=== PATIENT | female | born 1985 | race Caucasian/White ===

== ENCOUNTER → 2022-09-11 | Outpatient (CLI) | payer MEDICAID, SELFPAY ==
[2022-09-11 12:25] LABS: Absolute Lymphocyte Count 1.84 X10^3/uL (0.83-4.51); Absolute Neutrophil Count 7.2 X10^3/uL (2.0-7.7); Basophil# 0.02 X10^3/uL; Basophil% 0.2 % (0-1); Eosinophil# 0.05 X10^3/uL; Eosinophils% 0.5 % (0-5); Hematocrit 41.1 % (37-47); Hemoglobin 13.6 g/dL (12.0-15.0); Lymphocyte # 1.84 X10^3/ul (0.83-4.51); Lymphocyte % 19.3 % (19-41); Mean Corp Hgb Conc 33.1 g/dL (32-36); Mean Corpuscular Hgb 30.4 pg (27.0-32.0); Mean Corpuscular Volume 91.9 fL (81-99); Mean Platelet Vol. 11.9 fl (6.2-12.0); Monocyte% 4.2 % (0-10); NRBC Flagged by Analyzer 0 % (0-5); Neutrophil # 7.19 X10^3/uL (2.7-7.7); Neutrophil % 75.3 % (47-70); Platelet Count 200 K/mm3 (150-450); RBC Distribution Width CV 12.4 % (11.6-14.6); RBC Distribution Width SD 41.7 fl (35.1-43.9); Red Blood Count 4.47 M/mm3 (4.2-5.4); White Blood Count 9.6 K/mm3 (4.4-11.0)
[2022-09-11 14:07] LABS: HIV - WCH Non-Reactive (Nonreactive); Hepatitis B Surface Antigen Non-Reactive (Nonreactive); Hepatitis C Antibody Non-Reactive (Nonreactive); Rubella IgG Reactive (Nonreactive); Syphilis Antibodies Non-reactive
[2022-09-13 09:15] LABS: V-Zoster IgG (Immunity) 952 index (Immune >165)
[2022-09-15 04:07] LABS: Chlamydia By Nucleic Acid AMP Negative (Negative)
[2022-09-15 17:52] LABS: Gonococcus By Nucleic Acid AMP Negative (Negative)
[2022-09-22 18:46] LABS: HPV APTIMA, High Risk Negative (Negative)
== END | disposition home or self-care (01) ==
PROVIDERS: Visit Provider Obstetrics & Gynecology
DX: Z34.81 Encounter for supervision of other normal pregnancy, first trimester (principal)
CPT/HCPCS: 36415; 85025; 86703; 86762; 86780; 86787; 86803; 87086; 87088; 87340; 87491; 87591; 87624; 88175; G0145

== ENCOUNTER 2022-10-09 09:29 | Outpatient (CLI) | payer MEDICAID, SELFPAY ==
[2022-10-09 10:10] LABS: Absolute Neutrophil Count 6.4 X10^3/uL (2.0-7.7); Basophil# 0.03 X10^3/uL; Basophil% 0.3 % (0-1); Eosinophil# 0.08 X10^3/uL; Eosinophils% 0.9 % (0-5); Hematocrit 38.6 % (37-47); Hemoglobin 12.8 g/dL (12.0-15.0); Lymphocyte % 22.9 % (19-41); Mean Corp Hgb Conc 33.2 g/dL (32-36); Mean Corpuscular Hgb 30.6 pg (27.0-32.0); Mean Corpuscular Volume 92.3 fL (81-99); Mean Platelet Vol. 11.6 fl (6.2-12.0); Monocyte# 0.47 X10^3/uL; Monocyte% 5.1 % (0-10); NRBC Flagged by Analyzer 0 % (0-5); Neutrophil # 6.43 X10^3/uL (2.7-7.7); Neutrophil % 70.1 % (47-70); Platelet Count 185 K/mm3 (150-450); RBC Distribution Width CV 12.4 % (11.6-14.6); RBC Distribution Width SD 42.3 fl (35.1-43.9); Red Blood Count 4.18 M/mm3 (4.2-5.4); White Blood Count 9.2 K/mm3 (4.4-11.0)
[2022-10-09 11:34] LABS: Glucose Challenge Gest 1H 50g 85 mg/dL (70-140)
== END 2022-10-09 23:59 | disposition home or self-care (01) ==
LOC: WOBLAB 09:30
PROVIDERS: Visit Provider Obstetrics & Gynecology
DX: Z34.82 Encounter for supervision of other normal pregnancy, second trimester (principal)
CPT/HCPCS: 36415; 82950; 85025

== ENCOUNTER 2022-12-03 15:22 | Outpatient (CLI) | payer MEDICAID, SELFPAY ==
[2022-12-03 17:10] LABS: Absolute Lymphocyte Count 2.08 X10^3/uL (0.83-4.51); Absolute Neutrophil Count 7.7 X10^3/uL (2.0-7.7); Basophil# 0.04 X10^3/uL; Basophil% 0.4 % (0-1); Eosinophil# 0.07 X10^3/uL; Eosinophils% 0.7 % (0-5); Hematocrit 38.5 % (37-47); Hemoglobin 12.5 g/dL (12.0-15.0); Lymphocyte # 2.08 X10^3/ul (0.83-4.51); Lymphocyte % 19.5 % (19-41); Mean Corp Hgb Conc 32.5 g/dL (32-36); Mean Corpuscular Volume 92.3 fL (81-99); Mean Platelet Vol. 11.7 fl (6.2-12.0); Monocyte# 0.66 X10^3/uL; Monocyte% 6.2 % (0-10); NRBC Flagged by Analyzer 0 % (0-5); Neutrophil # 7.68 X10^3/uL (2.7-7.7); Neutrophil % 72.1 % (47-70); Platelet Count 177 K/mm3 (150-450); RBC Distribution Width CV 12.6 % (11.6-14.6); RBC Distribution Width SD 42.7 fl (35.1-43.9); Red Blood Count 4.17 M/mm3 (4.2-5.4); White Blood Count 10.7 K/mm3 (4.4-11.0)
[2022-12-03 18:12] LABS: Syphilis Antibodies Non-reactive
== END 2022-12-03 23:59 | disposition home or self-care (01) ==
LOC: LABSPEC 15:24
PROVIDERS: Visit Provider Obstetrics & Gynecology
DX: Z34.83 Encounter for supervision of other normal pregnancy, third trimester (principal); Z36.85 Encounter for antenatal screening for Streptococcus B; Z3A.00 Weeks of gestation of pregnancy not specified
CPT/HCPCS: 36415; 85025; 86780; 87081

== ENCOUNTER 2023-01-15 22:50 | Inpatient (IN) | payer MEDICAID, SELFPAY ==
[2023-01-15] VITALS (13 sets, daily range): BP systolic 105–111; BP diastolic 69–74; PULSE 75–93; TEMP 36.8; O2SAT 97–99; BMI 34.9
[2023-01-15 23:13] LABS: ROM Internal Control Test YES-OK TO RESULT pt. (Internal QC); ROM Patient Test POSITIVE (Negative)
[2023-01-15] MEDS: Oxytocin 10 UNITS/ML Vial IM (23:23)
--- NOTE | 2023-01-15 23:39 | PCM.HP.BLA ---
History and Physical Date of Admission: 01/15/23 Chief complaint: Contractions History of present illness: 37-year-old Maria L, P6 at 41 weeks and 3 days with TRE 01/05/2023 arrives with contractions. Denies headache, vision change, chest pain, shortness of breath, nausea vomit, right upper quadrant pain. Patient states good movement. is complicated by AMA, grand multipara Obstetric history: G1: 41-week G2: SAB G3: 41-week G4: 41-week G5: 41-week G6: SAB G7: 41-week G8: 40-week G9: Current Past medical history: None Medications: vitamin Allergies: Amoxicillin Past surgical history: [place] teeth extraction Family history: Denies history of DVT or PE Social history: Denies smoking, alcohol use, drug use Review of systems: Besides above pertinent positives a full review of systems was performed and found to be negative Physical exam: Vitals: Blood pressure 108/72 pulse 90 General: Normal-appearing no acute distress HEENT: Normocephalic/atraumatic no cervical lymphadenopathy Cardiac/respiratory: No use accessory muscles, nonlabored breathing Abdomen: Soft, nontender, gravid Extremities: No peripheral edema normal peripheral pulses Psych: Normal affect and demeanor nonpressured speech Labs: ROM positive Assessment and plan: 37-year-old Maria L, P6 at 41 weeks and 3 days called by nursing with contractions and prolonged deceleration admitted to labor and delivery. Arrived for delivery with patient at 9 cm Admit labor and delivery CEFM GBS negative
--- NOTE | 2023-01-15 23:43 | EX.PCM.OBRPT ---
Vaginal Delivery Findings Description of Procedure: Normal spontaneous vaginal delivery of a viable female infant, vertex THOMAS. Head and shoulders delivered with ease. Cord clamped and cut. Baby handed off to patient. Placenta delivered intact via cord traction and fundal massage. IM Pitocin given. No lacerations noted. EBL 250 cc Apgars 8/9
[2023-01-16] VITALS (19 sets, daily range): BP systolic 91–113; BP diastolic 53–67; PULSE 65–83; RESP 16–18; TEMP 36.1–36.4; O2SAT 96–98
[2023-01-16 00:09] LABS: Absolute Neutrophil Count 9.5 X10^3/uL (2.0-7.7); Basophil# 0.03 X10^3/uL; Basophil% 0.2 % (0-1); Eosinophil# 0.06 X10^3/uL; Eosinophils% 0.4 % (0-5); Hematocrit 40.3 % (37-47); Hemoglobin 13.6 g/dL (12.0-15.0); Lymphocyte % 22.8 % (19-41); Mean Corp Hgb Conc 33.7 g/dL (32-36); Mean Corpuscular Hgb 30.4 pg (27.0-32.0); Mean Platelet Vol. 11.5 fl (6.2-12.0); Monocyte# 0.73 X10^3/uL; Monocyte% 5.4 % (0-10); NRBC Flagged by Analyzer 0 % (0-5); Neutrophil # 9.53 X10^3/uL (2.7-7.7); Neutrophil % 70.3 % (47-70); Platelet Count 175 K/mm3 (150-450); RBC Distribution Width CV 12.4 % (11.6-14.6); RBC Distribution Width SD 41.1 fl (35.1-43.9); Red Blood Count 4.48 M/mm3 (4.2-5.4); White Blood Count 13.6 K/mm3 (4.4-11.0)
[2023-01-16] MEDS: Methylergonovine 0.2 MG/ML Ampul IM (00:20)
[2023-01-16] MEDS: Ibuprofen 600 MG Tablet PO ×3 (00:45→18:18)
--- NOTE | 2023-01-16 10:13 | PCM.PN.OB ---
Subjective Subjective No overnight complaints. Bleeding well controlled Objective Data Objective Data Vital Signs: Vital Signs Temp Pulse Resp BP Pulse Ox O2 Del Method 97.6 F L 74 16 101/64 98 Room Air 01/16/23 08:40 01/16/23 08:40 01/16/23 08:40 01/16/23 08:40 01/16/23 08:40 01/16/23 08:40 Oxygen Delivery Method Room Air Weight: 191 lb 5.78 oz Body Mass Index (BMI) 34.9 Intake & Output: Intake and Output for Last 24 Hours 01/14/23 01/15/23 01/16/23 23:59 23:59 23:59 Output Total 250 / 250 Balance -250 / -250 Lab / Micro Data Result Diagrams: 01/15/23 23:43 Labs: Laboratory Results - last 24 hr 01/15/23 22:23: Vag Amniotic Fld Detect POSITIVE H 01/15/23 23:43: WBC 13.6 H, RBC 4.48, Hgb 13.6, Hct 40.3, MCV 90.0, MCH 30.4, MCHC 33.7, RDW Std Deviation 41.1, RDW Coeff of Lucian 12.4, Plt Count 175, MPV 11.5, Immature Gran % (Auto) 0.900, Neut % (Auto) 70.3 H, Lymph % (Auto) 22.8, [place] % (Auto) 5.4, Eos % (Auto) 0.4, Baso % (Auto) 0.2, Absolute Neuts (auto) 9.5 H, Absolute Lymphs (auto) 3.10, Nucleated RBC % 0 01/15/23 23:43: Blood Type O POSITIVE, Antibody Screen NEGATIVE Physical Exam Const alert, oriented x3, no apparent distress, average body habitus, healthy appearing and well nourished HEENT normocephalic and moist oral mucous membranes Eyes PERRL Neck full ROM Resp normal respiratory effort, no retractions and no use of accessory muscles GI GI Narrative: Soft, nontender, uterus firm and below umbilicus Extremity normal to inspection and full ROM Neuro moves all extremities and no focal motor deficits Psych mental status grossly normal, affect normal, speech normal and activity/motor behavior normal Assessment & Plan (1) Vaginal delivery: PLAN: day 1. Breast-feeding, to see. Called overnight by nursing with slightly increased bleeding, given order for IM Methergine. Today with minimal vaginal bleeding firm uterus all reassuring. Likely home tomorrow
[2023-01-16] MEDS: Acetaminophen 500 MG Tablet 1000 MG PO ×2 (11:52→22:29)
--- NOTE | 2023-01-16 22:30 | NURSING ---
RN notes pt states she is only allergic to codeine and not acetaminophen.
[2023-01-17] VITALS (9 sets, daily range): BP systolic 82–108; BP diastolic 52–67; PULSE 61–76; RESP 14–16; TEMP 36.1–36.8; O2SAT 95–98
--- NOTE | 2023-01-17 02:22 | NURSING ---
RN notes BP 88/53. Denies dizziness or lightheadedness. Fundus -1, firm, midline and has scant bleeding. Pt states she is tired and just woke up. Will reassess bp in 1 hour.
[2023-01-17] MEDS: Ibuprofen 600 MG Tablet PO (07:26)
--- NOTE | 2023-01-17 10:23 | DS.PCM_ITS ---
Discharge Summary Date of Admission: 01/15/23 Date of Discharge: 01/17/23 Summary: Patient arrived on 01/15/2023 in labor. Subsequently delivered vaginally on 01/15/2023. Routine recovery. Discharge home on 01/17/2023 Meaningful Use Info Meaningful Use Diagnoses (Choose all that apply): None applicable Discharge Plan Admission Admit Date/Time: 01/15/23 22:50 Primary Reason for Your Visit: Labor Attending Provider: Erwin Sequeira Primary Care Provider: Care Physician,Denisse Primary Instructions Additional Instructions / Restrictions: Regular diet. Weightbearing as tolerated. Okay to shower. No intercourse for 4 to 6 weeks. Call if fevers, chills, chest pain, shortness of breath. Follow- up 4 to 6 weeks Discharge Orders/Prescriptions Prescriptions: No Action 1 mg Tablet 1 tab PO Referrals / Follow Up: Care Physician,No Primary [Primary Care Provider] - Disposition Disposition (needs filled in before D/C Order can be placed): Home, Self Care
--- NOTE | 2023-01-17 10:24 | PCM.PN.OB ---
Subjective Subjective No overnight complaint Objective Data Objective Data Vital Signs: Vital Signs Temp Pulse Resp BP Pulse Ox O2 Del Method 97.9 F 71 16 108/54 L 97 Room Air 01/17/23 07:28 01/17/23 07:29 01/17/23 07:28 01/17/23 07:29 01/17/23 07:28 01/17/23 07:28 Oxygen Delivery Method Room Air Weight: 191 lb 5.78 oz Body Mass Index (BMI) 34.9 Intake & Output: Intake and Output for Last 24 Hours 01/15/23 01/16/23 01/17/23 23:59 23:59 23:59 Output Total 250 / 250 Balance -250 / -250 Lab / Micro Data Result Diagrams: 01/15/23 23:43 Physical Exam Const alert, oriented x3, no apparent distress, average body habitus, healthy appearing and well nourished HEENT normocephalic and moist oral mucous membranes Eyes PERRL Neck full ROM Resp normal respiratory effort, no retractions and no use of accessory muscles GI GI Narrative: Soft, nontender, uterus firm and below umbilicus Extremity normal to inspection, full ROM and no clubbing, cyanosis or edema Neuro moves all extremities and no focal motor deficits Psych mental status grossly normal, affect normal, speech normal and activity/motor behavior normal Assessment & Plan (1) Vaginal delivery: PLAN: day 2. Breast-feeding. Pain well controlled. Okay to discharge home today
[2023-01-17] MEDS: Acetaminophen 500 MG Tablet 1000 MG PO (10:50)
[2023-01-17] MEDS: Senna/Docusate Sodium 1 Tablet PO (10:52)
== END 2023-01-17 12:20 | disposition home or self-care (01) | DRG 560 ==
LOC: WPOUT 22:51 → WP 22:51
PROVIDERS: Admitting Provider Obstetrics & Gynecology; Visit Provider Obstetrics & Gynecology
DX: O48.0 Post-term pregnancy (principal); Z37.0 Single live birth; Z3A.41 41 weeks gestation of pregnancy
CPT/HCPCS: 59025; 59050; 84112; 85025; 86850; 86900; 86901; 99221; G0378

== ENCOUNTER → 2023-02-25 | Outpatient (CLI) | payer MEDICAID, SELFPAY ==
[2023-02-25 12:01] LABS: HIV - WCH Non-Reactive (Nonreactive); Syphilis Antibodies Non-reactive
[2023-02-26 06:08] LABS: HEPATITIS B SURFACE AG Negative (Negative); Hepatitis B Core Ab Total Negative (Negative)
[2023-02-26 15:39] LABS: Hep B Surface Antibodies Reactive (.)
== END | disposition home or self-care (01) ==
LOC: WOBLAB 10:46
PROVIDERS: Visit Provider Obstetrics & Gynecology
DX: Z11.3 Encounter for screening for infections with a predominantly sexual mode of transmission (principal)
CPT/HCPCS: 36415; 86703; 86704; 86705; 86706; 86707; 86780; 86803; 87340; 87350

== ENCOUNTER 2025-01-15 03:30 | Inpatient (IN) | payer MEDICAID, SELFPAY ==
[2025-01-15] VITALS (38 sets, daily range): BP systolic 99–139; BP diastolic 58–86; PULSE 70–99; RESP 16–18; TEMP 36.4–37.1; O2SAT 87–99; BMI 30.8
[2025-01-15] MEDS: Oxytocin 15 Units/NS 250ml 15 UNITS/250 ML IV.SOLN 83 UNITS IV (03:53)
[2025-01-15] MEDS: Oxytocin 10 UNITS/ML Vial IM (03:54)
[2025-01-15] MEDS: 0.9% Saline Lock 10 ML Syringe IV (03:54)
[2025-01-15 03:55] LABS: Absolute Lymphocyte Count 2.92 X10^3/uL (0.83-4.51); Absolute Neutrophil Count 8.3 X10^3/uL (2.0-7.7); Basophil# 0.04 X10^3/uL; Basophil% 0.3 % (0-1); Eosinophil# 0.15 X10^3/uL; Eosinophils% 1.2 % (0-5); Hematocrit 39.6 % (37-47); Hemoglobin 13.3 g/dL (12.0-15.0); Lymphocyte # 2.92 X10^3/ul (0.83-4.51); Lymphocyte % 23.8 % (19-41); Mean Corp Hgb Conc 33.6 g/dL (32-36); Mean Corpuscular Hgb 29.8 pg (27.0-32.0); Mean Corpuscular Volume 88.6 fL (81-99); Monocyte# 0.77 X10^3/uL; Monocyte% 6.3 % (0-10); NRBC Flagged by Analyzer 0 % (0-5); Neutrophil # 8.29 X10^3/uL (2.7-7.7); Neutrophil % 67.7 % (47-70); Platelet Count 228 K/mm3 (150-450); RBC Distribution Width CV 13.4 % (11.6-14.6); RBC Distribution Width SD 43.8 fl (35.1-43.9); Red Blood Count 4.47 M/mm3 (4.2-5.4); White Blood Count 12.3 K/mm3 (4.4-11.0)
[2025-01-15] MEDS: Methylergonovine 0.2 MG/ML Ampul IM (03:56)
--- NOTE | 2025-01-15 04:08 | OB.VAGDELI_ITS ---
Assessment & Plan (1) Vaginal delivery: (2) Precipitous delivery: (3) History of shoulder dystocia: (4) AMA (advanced maternal age) multigravida 35+: (5) History of hemorrhage: (6) Late care: (7) History of prior with IUGR : Maternal Data Information TRE Calculator Estimated Delivery Date Method Current WG Current Estimate 01/21/25 Manual 39w 1d Final TRE: 01/21/25 Vaginal Delivery Maternal Presentation Maternal Presentation: Active Labor Vaginal Delivery Information Procedure Performed: Spontaneous Vaginal Delivery Date of Procedure: 01/15/25 Pre-Procedure Diagnosis: Active labor Post-Procedure Diagnosis: , precipitous , uterine atony Type of anesthesia: None Estimated Blood Loss: 500 ml Time of Delivery: 03:45 Findings Description of procedure: Arrived complete dilation onto unit. Unmedicated. of viable boy infant over intact perineum . APGARS 8/8 respectively. delivered by nursing staff, precipitous . Placed on maternal abdomen, strong cry. Mouth and nares suctioned for secretions. Arrived 2 minutes after delivery. Pitocin started for active 3rd stage management. Cord doubly clamped and cut after pulsations ceased, delayed cord clamping. Placenta delivered intact via nesbitt, 3 vessel cord intact. Perineum inspected and revealed intact. Uterine atony, Methergine IM given, fundus firm and hemostasis achieved. EBL 500ml. Mom and baby stable, planning to breastfeed. Family bonding well. notified of delivery. Presentation: Vertex Amniotic Membrane Rupture Type: Spontaneous Amniotic Fluid Description: Clear Placental Delivery Description: Spontaneous Placenta Disposition: [facility] Specimen collected: No Cord Vessel Description: 3 Vessels Cord Entanglement: None Infant A Gender: Male (1 minute): 8 (5 minute): 8 Delayed Cord Clamping: Yes Hat Mender underwater photographer: No Post Vaginal Deli Medications given after delivery: IV Pitocin, IM Pitocin and IM Methergin Episiotomy Description: None Laceration: None Complication Complications: No
--- NOTE | 2025-01-15 04:08 | HP.PCM.OB_ITS ---
HPI - General General Date of Admission: 01/15/25 HPI Narrative ALESSANDRO ALEJANDRO, is a 39 F who presents at 39w1d presented to labor and delivery in active labor with contractions. Upon cervical exam she was found to be complete dilation and desire to push. Maternal Data Information TRE Calculator Estimated Delivery Date Method Current WG Current Estimate 01/21/25 Manual 39w 1d PFSH PFSH Medical History (Updated 01/15/25 @ 04:34 by Marily Lan CNM) HPV in female Late care Shoulder (girdle) dystocia during labor and delivery History of prior with IUGR Home Medications ?Medication ?Instructions ?Recorded ?Last Taken ?Type ifdozhhy-[id number]-Wx-FA 1 mg 1 tab PO DAILY pregna ncy 01/15/23 01/11/25 History tablet Allergy/AdvReac Type Severity Reaction Status Date / Time acetaminophen (From Allergy Hives Verified 01/15/25 04:08 Tylenol-Codeine) adhesive tape Allergy Hives Verified 01/15/25 04:08 codeine (From Allergy Hives Verified 01/15/25 04:08 Tylenol-Codeine) Surgical History (Updated 01/15/25 @ 04:20 by Heidy Arnold) [place] teeth extracted Social History Smoking Status: Former smoker History Elective abortions Hx Para 7 Spontaneous abortions Hx # Term Pregnancies Ectopic pregnancies Hx # Pregnancies Multiple births # of living children Vital Signs Vital Signs Vital Signs: 01/15/25 03:24 01/15/25 03:24 01/15/25 04:00 Temperature Temperature Source Pulse Rate 88 91 Respiratory Rate Blood Pressure 139/86 H BP Systolic 139 BP Diastolic 86 Pulse Ox 01/15/25 04:00 01/15/25 04:05 01/15/25 04:05 Temperature Temperature Source Pulse Rate 87 Respiratory Rate Blood Pressure 112/66 BP Systolic 112 BP Diastolic 66 Pulse Ox 99 01/15/25 04:05 01/15/25 04:05 01/15/25 04:05 Temperature Temperature Source Temporal Pulse Rate 92 Respiratory Rate 18 Blood Pressure BP Systolic BP Diastolic Pulse Ox 01/15/25 04:05 01/15/25 04:05 Temperature 98.7 F Temperature Source Pulse Rate Respiratory Rate Blood Pressure BP Systolic BP Diastolic Pulse Ox 98 Weight Weight: 179 lb 12.8 oz Body Mass Index (BMI) 30.8 Labs Labs Labs: Blood Type O POSITIVE Antibody Screen NEGATIVE Hct 39.6 % (37-47) Hgb 13.3 g/dL (12.0-15.0) Syphilis Total Ab Non-reactive VZV IgG Antibody 952 index (Immune >165) Rubella IgG Antibody Reactive (Nonreactive) Hep Bs Antigen Negative (Negative) Hepatitis C Antibody Non-Reactive (Nonreactive) Chlamydia DNA (AISHA) Negative (Negative) N.gonorrhoeae DNA (AISHA) Negative (Negative) HIV 1&2 Antibody Non-Reactive (Nonreactive) Glucose 1 Hr 50 gm 85 mg/dL (70-140) GBS negative O Positive RPR non reactive Rubella Immune HBsAG negative HepC negative HIV non reactive GC/CT negative Assessment & Plan (1) History of hemorrhage: (2) Late care: (3) History of prior with IUGR : (4) AMA (advanced maternal age) multigravida 35+: (5) History of shoulder dystocia: (6) Active labor at term: PLAN: Plan 1) Admit to labor and delivery 2) Routine labs 3) Continuous EFM 4) Pain management upon request 5) GBS negative 6) Dr. Feliciano collaborative physician and notified of patient status, above as sessment, and plan.
[2025-01-15 04:26] LABS: Syphilis Antibodies Non-reactive
[2025-01-15] MEDS: Senna/Docusate Sodium 1 Tablet PO (20:00)
[2025-01-16 04:21] VITALS: BP 114/80; PULSE 76; RESP 16; TEMP 36.6; O2SAT 97
[2025-01-16 06:20] LABS: Absolute Neutrophil Count 6.6 X10^3/uL (2.0-7.7); Basophil# 0.05 X10^3/uL; Basophil% 0.5 % (0-1); Eosinophil# 0.19 X10^3/uL; Eosinophils% 1.8 % (0-5); Hematocrit 35.4 % (37-47); Hemoglobin 11.6 g/dL (12.0-15.0); Lymphocyte % 28.2 % (19-41); Mean Corp Hgb Conc 32.8 g/dL (32-36); Mean Corpuscular Hgb 29.5 pg (27.0-32.0); Mean Corpuscular Volume 90.1 fL (81-99); Mean Platelet Vol. 11.6 fl (6.2-12.0); Monocyte# 0.68 X10^3/uL; Monocyte% 6.4 % (0-10); NRBC Flagged by Analyzer 0 % (0-5); Neutrophil % 62.2 % (47-70); Platelet Count 214 K/mm3 (150-450); RBC Distribution Width CV 13.4 % (11.6-14.6); Red Blood Count 3.93 M/mm3 (4.2-5.4); White Blood Count 10.6 K/mm3 (4.4-11.0)
[2025-01-16] MEDS: Senna/Docusate Sodium 1 Tablet PO (08:25)
[2025-01-16] MEDS: Benzocaine/Lanolin/Aloe Vera 85 GM Spray 1 SPRAY TOPICAL (08:26)
[2025-01-16 08:33] VITALS: BP 105/71; PULSE 79; RESP 16; TEMP 36.6
--- NOTE | 2025-01-16 08:49 | PCM.PN.OB ---
Subjective Subjective Patient feels sore but is doing OK. Objective Data Objective Data Vital Signs: Vital Signs Temp Pulse Resp BP Pulse Ox O2 Del Method 97.9 F 79 16 105/71 97 Room Air 01/16/25 08:33 01/16/25 08:33 01/16/25 08:33 01/16/25 08:33 01/16/25 04:21 01/16/25 08:33 Oxygen Delivery Method Room Air Weight: 179 lb 12.8 oz Body Mass Index (BMI) 30.8 Intake & Output: Intake and Output for Last 24 Hours 01/14/25 01/15/25 01/16/25 23:59 23:59 23:59 Intake Total 250 / 250 Output Total 700 / 700 Balance -450 / -450 Lab / Micro Data 01/16/25 05:55 Labs: Laboratory Results - last 24 hr 01/16/25 05:55: WBC 10.6, RBC 3.93 L, Hgb 11.6 L, Hct 35.4 L, MCV 90.1, MCH 29.5, MCHC 32.8, RDW Std Deviation 44.0 H, RDW Coeff of Lucian 13.4, Plt Count 214, MPV 11.6, Immature Gran % (Auto) 0.900, Neut % (Auto) 62.2, Lymph % (Auto) 28.2, [place] % (Auto) 6.4, Eos % (Auto) 1.8, Baso % (Auto) 0.5, Absolute Neuts (auto) 6.6, Absolute Lymphs (auto) 3.00, Nucleated RBC % 0 Physical Exam Const alert, oriented x3 and no apparent distress HEENT normocephalic GI soft to palpation, non-tender and non-distended GI Narrative: fundus firm, mid & below umbilicus Extremity normal to inspection and no calf tenderness Assessment & Plan (1) Vaginal delivery: COMMENT: PPD#1 PLAN: Plan d/c home later today per patient request
--- NOTE | 2025-01-16 08:50 | DS.PCM_ITS ---
Providers Date of Admission: 01/15/25 Primary Care Physician: ROQUE ARCHER Reason For Visit: R/O LABOR Diagnosis Discharge Diagnosis (1) Vaginal delivery: Status: Acute Code(s): O80 - Encounter for full-term uncomplicated delivery Plan d/c home later today per patient request Medications at Discharge Home Medications ooompwym-[id number]-FA 1 mg tablet 1 tab PO DAILY 01/15/23 ibuprofen 600 mg tablet 600 mg PO Q6H PRN PRN Pain Score 1-10 #0 tabs 01/16/25 Hospital Course Operations None Summary of Care Provided Minutes Spent on Discharge: 15 Weight / BMI Weight Weight: 179 lb 12.8 oz Body Mass Index (BMI) 30.8 ABG / Lab / Microbiology Data 01/16/25 05:55 Laboratory: Laboratory Results - last 24 hr 01/16/25 05:55: WBC 10.6, RBC 3.93 L, Hgb 11.6 L, Hct 35.4 L, MCV 90.1, MCH 29.5, MCHC 32.8, RDW Std Deviation 44.0 H, RDW Coeff of Lucian 13.4, Plt Count 214, MPV 11.6, Immature Gran % (Auto) 0.900, Neut % (Auto) 62.2, Lymph % (Auto) 28.2, [place] % (Auto) 6.4, Eos % (Auto) 1.8, Baso % (Auto) 0.5, Absolute Neuts (auto) 6.6, Absolute Lymphs (auto) 3.00, Nucleated RBC % 0 D/C Instructions Discharge Diet: No restrictions Discharge Activity: May Shower May resume sexual activity in: 6 weeks Weight Bearing Status: Weight bearing as tolerated Call your doctor if you observe: Fever of 101 or Higher, Coldness, Increased Pain, Change in Color, Inability to urinate, Inability to have a bowel movement, Using more than 1 pad per hour, Shortness of breath, Dizziness, Fainting spells, Chest pain, Increased palpitations (irregular heartbeat), Calf discomfort and Uncontrolled pain DC O2, CPAP, BIPAP Needs Home O2 Discharge instructions: No Please Follow Up With: Kelle Hood MD When: Follow up in 2 and 6 weeks for visits. Meaningful Use Info Meaningful Use Meaningful Use Diagnoses (Choose all that apply): None applicable Ischemic Stroke Statin Dosing Therapy Reference: STATIN DOSE THERAPY REFERENCE: * Patients > 75 years receive moderate or high dose statin therapy. * Patients 75 years or YOUNGER should receive HIGH intensity statin dose unless contraindicated. You will be required to document reason for non-treatment if statin daily dose does not meet guidelines. HIGH DOSE STATIN THERAPY DAILY Atorvastatin > than or = to 40 mg Rosuvastatin > than or = to 20 mg Amlodipine + Atorvastatin > than or = to 2.5/40 mg Ezetimibe + Simvastatin 10/80 mg Simvastatin 80mg Discharge Plan Admission Admit Date/Time: 01/15/25 03:30 Primary Reason for Your Visit: Vaginal delivery Attending Provider: Marily Lan Primary Care Provider: ROQUE ARCHER Discharge Orders/Prescriptions Prescriptions: New ibuprofen 600 mg Tablet 600 mg PO Q6H PRN PRN (Reason: Pain Score 1-10) Qty: 0 0RF Continued mapfkicw-fiv-Yv-FA 1 mg Tablet 1 tab PO DAILY Referrals / Follow Up: ROQUE ARCHER [Other] Disposition Disposition (needs filled in before D/C Order can be placed): Home, Self Care
[2025-01-16 14:34] VITALS: BP 116/87; PULSE 79; RESP 18; TEMP 36.6; O2SAT 97
--- NOTE | 2025-01-17 11:27 | CASEMGMT ---
Social Work Assessment Labor and Delivery Unit Patient Address: [id number] [place] [address] [place] [address] Phone number: [phone] Date of Referral: 01/16/25 Time of Referral:? 1329 Referred By: Dr. Kelle Hood Date of Intervention: ?01/16/25? Time of Intervention:? 1329 Reason for Referral:? late care Sw completed chart review and acknowledges social work consult. Sw presented to bedside and introduced self to mother of baby (MOB- Shakila). Sw explained reason for sw involvement and completed psychosocial assessment. History obtained from: medical records, MOB Household composition:MOB reports that currently residing in the home is herself, father of baby (FOB- Jose Elias Pearson) and MOB's seven other children: Shakeel Leelee (: 01/14/07), Yarelis Leelee (: 04/01/10), Michael Leelee (: 04/21/12), Dinorah Laraer (: 04/20/14), Alejandro Shen (: 03/28/19), Cb Shen (: 09/29/20) and Loida Shen (: 01/15/23). MOB reports that baby to be included in residence when ready for discharge. MOB denies any problems or concerns with housing, reporting it to be safe and secure. Patient's parent/guardian status:? ?MARIZOL states that she and FOYunier met online and have been together for 10 years. MARIZOL denies any domestic violence or intimate partner violence. Medical History: ?MARIZOL is 39 year old female who is 10, para 7- now 8 following labor and delivery. MARIZOL receiced care beginning at 17 weeks gestation with [facility]. MARIZOL states that she had been seen previously by [facility], but they were not provided OBGYN care when she got , and had a hard time finding a provider that was accepting new patient's and would also accept her insurance. MARIZOL presented to hospital and delivered baby via vaginal delivery at 39 weeks gestation. Baby boy, named Diego Shen, was born weighing 6lb 1oz with apgars of 8 and 8 at one and five minutes of life, respectfully. MOB states that she is bottle feeding baby and the baby will be followed by Dr. Porras for pediatrics. Educational Status:? MARIZOL reports to graduating from high school and attending some classes for her [employer] but decided that it was not for her. Financial Status: MARIZOL is employed at [employer], and states that CHADWICK works for a factory. MOB states that they alternate schedules and shifts so that one of them is with the younger children. Supplies: MOB states that all necessary baby supplies have been obtained, including: car seat, safe sleep space, clothes, diapers and wipes. Childcare/Caregiver(s):? MOB states that she or FOB will be the primary caregiver to baby Transportation:?Both parents have their drivers license and reliable means of transportation, no barriers. Programs/Agencies Involved: ??Medicaid for insurance and WIC. MOB states that the household is over income for [employer]. Children Services/Legal Issues:???When asked about history of children services involvement, MOB did not answer right away, and then reported no. No issues or concerns at this time warranting referral to be made. Behavioral Health Issues: ??Mental Health History:MOB states that neither herself or FOB have mental health history. ??? Substance Use History:?MOB denies substance use prior to and during . ? Family History:??MOB denies family history of substance use/ addiction or significant mental health history. ??? Drug Screens: NO drug screens observed while completing chart review. Family/Social Stressors:? MOB denies any problems, concerns or stressors at this time. Support Systems: MARIZOL states that she and FOB do not have any family who can help or support them. MOB states that their family was old and has . When condolences were expressed by quintin, MARIZOL said don't be sorry that's just how it is. MARIZOL identifies that her co-workers are her biggest supports. Depression/Shaken Baby/Safe Sleeping: Quintin educated MARIZOL on signs and symptoms of baby blues and depression and anxiety. MARIZOL denies having experienced any concerns with her mental health following her prior 7 deliveries. MOB states that if she were to struggle with her mental health FOB would be able to recognize that she is struggling. MOB states that she thinks going back to work early in the past has helped her mental health. MOB states that she is going to talk to her doctor and ask that she be permitted to return to work in two weeks time. Sw educated MOB on shaken baby prevention and ABCs of safe sleep. MOB expressed understanding. ASSESSMENT:? MOB and baby admitted following labor and delivery of . MOB with late care, reporting that it took her while to find a new OBGYN provider. This is MARIZOL's eighth baby. MOB states that she has support from her co-workers and FOB. MOB has everything that she needs for baby. MOB denies history of experiencing baby blues or depression/ anxiety in the past. MOB was not direct with her answers, some times taking time to answer questions asked or texting on her phone. MOB presented as though she was frustrated with sw presence and questions, even though reasoning was explained to her. MOB did smile from time to time and was observed to hold and care for baby in appropriate and loving manner. PLAN:?? No other services requested or indicated. MOB and baby to be discharged when medically ready. Parents were provided literature regarding: signs and symptoms of baby blues and mood and anxiety disorders, Help Me Grow, shaken baby prevention, ABCs of safe sleep and a list of county resources that are available for them should any needs present themselves. Deidre Goetz, AUTOMOBILE LIGHTS ASSEMBLER, AFFIRMATIVE ACTION OFFICER
== END 2025-01-16 15:30 | disposition home or self-care (01) | DRG 560 ==
LOC: WPOUT 03:44 → WP 03:44
PROVIDERS: Admitting Provider Advanced Practice Midwife; Visit Provider Advanced Practice Midwife
DX: O62.3 Precipitate labor (principal); Z37.0 Single live birth; O62.2 Other uterine inertia; Z3A.39 39 weeks gestation of pregnancy; Z87.59 Personal history of other complications of pregnancy, childbirth and the puerperium; Z87.891 Personal history of nicotine dependence
CPT/HCPCS: 59025; 59050; 85025; 86780; 86850; 86900; 86901; A4216